=== PATIENT | male | born 1955 | race Caucasian/White ===

== ENCOUNTER 2017-01-12 11:51 | Emergency (ER) | payer BC ==
--- NOTE | 2017-01-12 13:17 | DIAGNOSTIC IMAGING REPORT ---
PROCEDURE: XR CHEST 2 VIEW INDICATION: CHEST PAIN TECHNIQUE: PA and lateral views. COMPARISON: None. FINDINGS: Allowing for overlying wires and electrodes, lungs are clear. Heart and mediastinum are normal. There are mild degenerative change of the thoracic spine. IMPRESSION: 1. Negative chest.
--- NOTE | 2017-01-12 15:18 | ED ORDER SUMMARY ---
..... Patient: BRITTNEE ORDONEZ OrderSheet [facility] VisitID: [id number] [place] [address] 61y, M Registration Date/Time: 01/12/2017 ORDER SHEET Weight: 113.3 kg (stated) Allergies: No Known Drug Allergy GENERAL ORDERS: Rug Washer (Continuous) (CP) (12:05 01/12/2017 Kamala Lynch) (12:13 KHoerner) EKG - ER Stat (12:01/12/2017 Kamala Lynch) (12:13 KHoerner) Pulse oximeter (12:01/12/2017 Kamala Lynch) (12:13 KHoerner) Chest 2V Urgent (12:01/12/2017 Kamala Lynch) (12:52 KHoerner) CBC w Diff Urgent (12:01/12/2017 Kamala Lynch) (12:52 KHoerner) CMP Urgent (12:01/12/2017 Kamala Lynch) (12:52 KHoerner) Troponin-I Urgent (12:51 01/12/2017 Kamala Lynch) (12:52 KHoerner) Troponin-I (redraw 2 hours after first draw) Urgent (13:59 01/12/2017 Kamala Lynch) (Ack 14:02 KHoerner) (14:19 KHoerner) MEDICATION ORDERS: IV FLUIDS: IV Saline Lock (12:51 01/12/2017 Kamala Lynch) (13:11 Rich R.NDonald) ORDER SHEET NOTES: [Electronically signed by Kenneth Barton Dr. (15:22 01/12/2017)] [Electronically signed by Heike Virgen R.N. (15:33 01/12/2017)] [Electronically locked/signed by Heike Virgen R.N. (15:33 01/12/2017)]
--- NOTE | 2017-01-12 15:18 | ED CLINICAL REPORT ---
Clinical Report - Physicians/Mid Levels [facility] [address] [place] [address] 01/12/2017 11:53 Patient: BRITTNEE ORDONEZ Time Seen: 1205. Arrived- By private vehicle. Historian- patient. HISTORY OF PRESENT ILLNESS Chief Complaint: CHEST PAIN. This started today, is still present but is better now and is now gone (lasted a few minutes). It was abrupt in onset and has been constant. Onset during rest. At its maximum, severity described as moderate. When seen in the E.D., it was gone. Modifying factors. Not worsened by anything. Not relieved by anything. It is described as tightness and it is described as located in the central chest area. No radiation. The patient has had difficulty breathing and nausea. No vomiting or diaphoresis. (reports no hemoptysis or recent trauma.). No additional chest pain. Similar symptoms previously: Many times. ( has not seen a doctor for this. last a few minutes then resolve.). REVIEW OF SYSTEMS No fever, chills or pedal edema. All systems otherwise negative, except as recorded above. PAST HISTORY See nurses notes. Denies the following risk factors for DVT/PE - history of DVT and pulmonary embolism, recent surgery, recent [place] and congestive heart failure. Denies the following risk factors for DVT/PE - cancer, clotting disorder, estrogens, obesity and immobility. Denies the following risk factors for DVT/PE - advanced in age and vena cava filter. SOCIAL HISTORY Never smoker. No alcohol use or drug use. No recent travel. 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 FAMILY HISTORY No history of heart disease. ADDITIONAL NOTES The nursing notes have been reviewed. PHYSICAL EXAM Vital Signs: 01/12/2017 12:05 BP: 157/83. HR: 59. RR: 18. O2 saturation: 97%. Temp: 98.3 F. Pain level now: 3/10. Hypertensive. Oxygen saturation normal. Appearance: Alert. Oriented X3. No acute distress. Eyes: Pupils equal, round and reactive to light. Eyes normal inspection. ENT: Ears normal. Nose normal. Pharynx normal. Neck: Normal inspection. Neck supple. CVS: Normal heart rate and rhythm. Heart sounds normal. Pulses normal. Respiratory: No respiratory distress. Breath sounds normal. Chest nontender. Abdomen: Soft and nontender. Bowel sounds normal. No mass. Skin: Skin warm and dry. Normal skin color. No rash. Normal skin turgor. Extremities: Extremities exhibit normal ROM. No lower extremity edema. LABS, X-RAYS, AND EKG EKG: No acute process. No acute ischemia. Narrow-complex bradycardia (55). Sinus bradycardia. Normal P waves. Normal JENNIFER. Normal QRS complex. Normal axis. Normal ST and T waves, QT and QTc. Prior EKG unavailable. The study has been interpreted contemporaneously by me. The study has been independently viewed by me. The EKG appears to be a good tracing. I agree with and confirm the computer reading of the EKG. Chest X-ray: (PROCEDURE: XR CHEST 2 VIEW INDICATION: CHEST PAIN TECHNIQUE: PA and lateral views. COMPARISON: None. FINDINGS: Allowing for overlying wires and electrodes, lungs are clear. Heart and mediastinum are normal. There are mild degenerative change of the thoracic spine. IMPRESSION: 1. Negative chest.). Views: PA and lateral. Technique: good. The X-rays were independently viewed by me and interpreted by the radiologist. The X-rays were discussed with the radiologist (via pacs). Laboratory Tests: CBC w Diff: (KISHAN: 01/12/2017 12:19) ( MsgRcvd 01/12/2017 13:07) Final results Test Result Flag Units (Reference) WHITE BLOOD COUNT 5.0 K/uL (4.5-11.5) RED BLOOD COUNT 4.49 L M/uL (4.50-5.90) HEMOGLOBIN 14.1 gm/dL (13.5-17.5) HEMATOCRIT 41.3 % (41.0-53.0) MEAN CELL VOLUME 92 fL (80-100) MEAN CORPUSCULAR HGB 31 pg (26-34) MEAN CORPUSCULAR HGB CONC 34 g/dL (31-37) RED CELL DISTRIBUTION WIDTH 13.4 % (11.6-14.8) PLATELET COUNT 226 K/uL (150-400) NEUTROPHIL % 66.0 % (50-75) LYMPH % 24.8 L % (25-40) MONO % 5.8 % (3-14) EOSINOPHIL % 2.4 % (0-4) BASOPHIL % 1.0 % (0-2) Troponin-I: (KISHAN: 01/12/2017 14:19) ( [facility] 01/12/2017 14:56) Final results Test Result Flag Units (Reference) TROPONIN I <0.05 ng/mL (0.00-1.5) TROPONIN REFERENCE RANGE:<0.1 NEGATIVE0.1-1.5 INDETERMINANT>1.5 POSITIVE CMP: (KISHAN: 01/12/2017 12:19) ( [facility] 01/12/2017 13:21) Final results Test Result Flag Units (Reference) GLUCOSE 150 H mg/dL (70-110) BUN 27 H mg/dL (7-18) CREATININE 1.0 mg/dL (0.6-1.3) Estimated GFR >60 mL/min Estimated GFR- >60 mL/min Note: Persistent reduction over 3 months in eGFR<60 mL/min/1.73 m2 defines CKD. Patients with eGFR values>=60 mL/min/1.73 m2 may also have CKD if evidence ofpersistent proteinuria. Additional information may be foundat [email or web address].org. SODIUM 140 mmol/L (136-145) POTASSIUM 4.0 mmol/L (3.5-5.1) CHLORIDE 103 mmol/L (98-107) CARBON DIOXIDE 26 mmol/L (21-32) CALCIUM 8.9 mg/dL (8.5-10.1) TOTAL PROTEIN 6.9 g/dL (6.4-8.2) ALBUMIN 3.8 g/dL (3.3-5.0) BILIRUBIN, TOTAL 0.4 mg/dL (0.0-1.0) ALKALINE PHOSPHATASE 89 U/L (46-116) AST (SGOT) 20 U/L (15-37) ALT (SGPT) 30 U/L (12-78) TROPONIN I 0.07 ng/mL (0.00-1.5) TROPONIN REFERENCE RANGE:<0.1 NEGATIVE0.1-1.5 INDETERMINANT>1.5 POSITIVE . PROGRESS AND PROCEDURES Course of Care: the patient is a pleasant 61-year-old malewith no pertinent past medical history presenting for evaluation of chest pain. Patient reports having no cardiac history. No risk factors forcardiac disease except for high cholesterol and borderline diabetes. Patient is a nonsmoker and with a history of hypertension. At this time differential diagnosis includespneumonia,acute myocardial infarction, or gastroesophageal reflux. 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 Patient reports that he has never had any difficulty with the pain while working. Patient will be evaluated for the chest pain with cardiac enzymes 2 based on the patient's time course as well as chest x-ray and EKG. EKG was only remarkable for sinus bradycardia. No abnormalities noted on chest x-ray. Troponin is noted to be negative 2. Patient continues to be symptom free Because the patient'slack of's chest pain or shortness of breath at this time, have low clinical suspicion for pulmonary embolism. Wells criteria is noted to be at low risk. Do not feel further workup for pulmonary embolism is warranted at this time. Because of the patient's age, did discuss with the patient option ofmonitoring in the hospital versus outpatient management. Patient had electedoutpatient management for his chest pain After discussing the risks and benefits. I further discussed with the patient is diagnosis, workup, home care, follow-up, and return precautions. All questions have been answered. The patient expressed understanding of these instructions and was agreeable to them. Disposition: Discharged. Condition: good. CLINICAL IMPRESSION Chest pain characterized as "discomfort"(acute). 01/12/2017 14:21 BP: 128/80. HR: 55. RR: 18. O2 saturation: 96%. Blood pressure normal. Oxygen saturation normal. INSTRUCTIONS Warnings: GENERAL WARNINGS: Return or contact your physician immediately if your condition worsens or changes unexpectedly, if not improving as expected, or if other problems arise. SPECIFICALLY, return if you develop chest, neck, jaw, shoulder, arm, or back pain, difficulty breathing, a fluttering sensation in your chest, lightheadedness, fainting, excessive fatigue, or sudden sweating. Your Current Medications: CONTINUE TAKING THE FOLLOWING MEDICATIONS: Advil Oral : 2 tabs BID. OTC Medications: Aspirin 81 mg (available over the counter): take 1 orally every 24 hours. Dispense thirty (30). No refills. Follow-up: Return to the emergency department as needed. Follow up with a specialist You may also contact Dr. French at [phone]. Screening today revealed the patient's blood pressure to be in the normal range. The patient should follow up with a primary care provider for blood pressure management. Understanding of the discharge instructions verbalized by patient. Follow-up with: Nolan Frank MD, Cardiology, , [address], [address], [place] [address] Follow up. Reason for referral: Call tomorrow to schedule an appointment. Tell them you were here in the emergency department and need a cardiac stress test. Summary of care provided to patient and family via paper. (Electronically signed by Kenneth Barton Dr. 01/12/2017 15:22)
--- NOTE | 2017-01-12 15:18 | ED ORDER SUMMARY ---
..... Patient: BRITTNEE ORDONEZ OrderSheet [facility] VisitID: [id number] [place] [address] 61y, M Registration Date/Time: 01/12/2017 ORDER SHEET Weight: 113.3 kg (stated) Allergies: No Known Drug Allergy GENERAL ORDERS: Peer Health Promoter (Continuous) (CP) (12:05 01/12/2017 Kamala Lynch) (12:13 KHoerner) EKG - ER Stat (12:01/12/2017 Kamala Lynch) (12:13 KHoerner) Pulse oximeter (12:01/12/2017 Kamala Lynch) (12:13 KHoerner) Chest 2V Urgent (12:01/12/2017 Kamala Lynch) (12:52 KHoerner) CBC w Diff Urgent (12:01/12/2017 Kamala Lynch) (12:52 KHoerner) CMP Urgent (12:01/12/2017 Kamala Lynch) (12:52 KHoerner) Troponin-I Urgent (12:51 01/12/2017 Kamala Lynch) (12:52 KHoerner) Troponin-I (redraw 2 hours after first draw) Urgent (13:59 01/12/2017 Kamala Lynch) (Ack 14:02 KHoerner) (14:19 KHoerner) MEDICATION ORDERS: IV FLUIDS: IV Saline Lock (12:51 01/12/2017 Kamala Lynch) (13:11 Rich R.NDonald) ORDER SHEET NOTES: [Electronically signed by Kenneth Barton Dr. (15:22 01/12/2017)] [Electronically signed by Heike Virgen R.N. (15:33 01/12/2017)] [Electronically locked/signed by Heike Virgen R.N. (15:33 01/12/2017)]
--- NOTE | 2017-01-12 15:18 | ED CLINICAL REPORT ---
Clinical Report - Physicians/Mid Levels [facility] [address] [place] [place] [address] 01/12/2017 11:53 Patient: BRITTNEE ORDONEZ Time Seen: 1205. Arrived- By private vehicle. Historian- patient. HISTORY OF PRESENT ILLNESS Chief Complaint: CHEST PAIN. This started today, is still present but is better now and is now gone (lasted a few minutes). It was abrupt in onset and has been constant. Onset during rest. At its maximum, severity described as moderate. When seen in the E.D., it was gone. Modifying factors. Not worsened by anything. Not relieved by anything. It is described as tightness and it is described as located in the central chest area. No radiation. The patient has had difficulty breathing and nausea. No vomiting or diaphoresis. (reports no hemoptysis or recent trauma.). No additional chest pain. Similar symptoms previously: Many times. ( has not seen a doctor for this. last a few minutes then resolve.). REVIEW OF SYSTEMS No fever, chills or pedal edema. All systems otherwise negative, except as recorded above. PAST HISTORY See nurses notes. Denies the following risk factors for DVT/PE - history of DVT and pulmonary embolism, recent surgery, recent [place] and congestive heart failure. Denies the following risk factors for DVT/PE - cancer, clotting disorder, estrogens, obesity and immobility. Denies the following risk factors for DVT/PE - advanced in age and vena cava filter. SOCIAL HISTORY Never smoker. No alcohol use or drug use. No recent travel. 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 FAMILY HISTORY No history of heart disease. ADDITIONAL NOTES The nursing notes have been reviewed. PHYSICAL EXAM Vital Signs: 01/12/2017 12:05 BP: 157/83. HR: 59. RR: 18. O2 saturation: 97%. Temp: 98.3 F. Pain level now: 3/10. Hypertensive. Oxygen saturation normal. Appearance: Alert. Oriented X3. No acute distress. Eyes: Pupils equal, round and reactive to light. Eyes normal inspection. ENT: Ears normal. Nose normal. Pharynx normal. Neck: Normal inspection. Neck supple. CVS: Normal heart rate and rhythm. Heart sounds normal. Pulses normal. Respiratory: No respiratory distress. Breath sounds normal. Chest nontender. Abdomen: Soft and nontender. Bowel sounds normal. No mass. Skin: Skin warm and dry. Normal skin color. No rash. Normal skin turgor. Extremities: Extremities exhibit normal ROM. No lower extremity edema. LABS, X-RAYS, AND EKG EKG: No acute process. No acute ischemia. Narrow-complex bradycardia (55). Sinus bradycardia. Normal P waves. Normal JENNIFER. Normal QRS complex. Normal axis. Normal ST and T waves, QT and QTc. Prior EKG unavailable. The study has been interpreted contemporaneously by me. The study has been independently viewed by me. The EKG appears to be a good tracing. I agree with and confirm the computer reading of the EKG. Chest X-ray: (PROCEDURE: XR CHEST 2 VIEW INDICATION: CHEST PAIN TECHNIQUE: PA and lateral views. COMPARISON: None. FINDINGS: Allowing for overlying wires and electrodes, lungs are clear. Heart and mediastinum are normal. There are mild degenerative change of the thoracic spine. IMPRESSION: 1. Negative chest.). Views: PA and lateral. Technique: good. The X-rays were independently viewed by me and interpreted by the radiologist. The X-rays were discussed with the radiologist (via pacs). Laboratory Tests: CBC w Diff: (KISHAN: 01/12/2017 12:19) ( MsgRcvd 01/12/2017 13:07) Final results Test Result Flag Units (Reference) WHITE BLOOD COUNT 5.0 K/uL (4.5-11.5) RED BLOOD COUNT 4.49 L M/uL (4.50-5.90) HEMOGLOBIN 14.1 gm/dL (13.5-17.5) HEMATOCRIT 41.3 % (41.0-53.0) MEAN CELL VOLUME 92 fL (80-100) MEAN CORPUSCULAR HGB 31 pg (26-34) MEAN CORPUSCULAR HGB CONC 34 g/dL (31-37) RED CELL DISTRIBUTION WIDTH 13.4 % (11.6-14.8) PLATELET COUNT 226 K/uL (150-400) NEUTROPHIL % 66.0 % (50-75) LYMPH % 24.8 L % (25-40) MONO % 5.8 % (3-14) EOSINOPHIL % 2.4 % (0-4) BASOPHIL % 1.0 % (0-2) Troponin-I: (KIHSAN: 01/12/2017 14:19) ( [facility] 01/12/2017 14:56) Final results Test Result Flag Units (Reference) TROPONIN I <0.05 ng/mL (0.00-1.5) TROPONIN REFERENCE RANGE:<0.1 NEGATIVE0.1-1.5 INDETERMINANT>1.5 POSITIVE CMP: (KISHAN: 01/12/2017 12:19) ( [facility] 01/12/2017 13:21) Final results Test Result Flag Units (Reference) GLUCOSE 150 H mg/dL (70-110) BUN 27 H mg/dL (7-18) CREATININE 1.0 mg/dL (0.6-1.3) Estimated GFR >60 mL/min Estimated GFR- >60 mL/min Note: Persistent reduction over 3 months in eGFR<60 mL/min/1.73 m2 defines CKD. Patients with eGFR values>=60 mL/min/1.73 m2 may also have CKD if evidence ofpersistent proteinuria. Additional information may be foundat [email or web address].org. SODIUM 140 mmol/L (136-145) POTASSIUM 4.0 mmol/L (3.5-5.1) CHLORIDE 103 mmol/L (98-107) CARBON DIOXIDE 26 mmol/L (21-32) CALCIUM 8.9 mg/dL (8.5-10.1) TOTAL PROTEIN 6.9 g/dL (6.4-8.2) ALBUMIN 3.8 g/dL (3.3-5.0) BILIRUBIN, TOTAL 0.4 mg/dL (0.0-1.0) ALKALINE PHOSPHATASE 89 U/L (46-116) AST (SGOT) 20 U/L (15-37) ALT (SGPT) 30 U/L (12-78) TROPONIN I 0.07 ng/mL (0.00-1.5) TROPONIN REFERENCE RANGE:<0.1 NEGATIVE0.1-1.5 INDETERMINANT>1.5 POSITIVE . PROGRESS AND PROCEDURES Course of Care: the patient is a pleasant 61-year-old malewith no pertinent past medical history presenting for evaluation of chest pain. Patient reports having no cardiac history. No risk factors forcardiac disease except for high cholesterol and borderline diabetes. Patient is a nonsmoker and with a history of hypertension. At this time differential diagnosis includespneumonia,acute myocardial infarction, or gastroesophageal reflux. 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 Patient reports that he has never had any difficulty with the pain while working. Patient will be evaluated for the chest pain with cardiac enzymes 2 based on the patient's time course as well as chest x-ray and EKG. EKG was only remarkable for sinus bradycardia. No abnormalities noted on chest x-ray. Troponin is noted to be negative 2. Patient continues to be symptom free Because the patient'slack of's chest pain or shortness of breath at this time, have low clinical suspicion for pulmonary embolism. Wells criteria is noted to be at low risk. Do not feel further workup for pulmonary embolism is warranted at this time. Because of the patient's age, did discuss with the patient option ofmonitoring in the hospital versus outpatient management. Patient had electedoutpatient management for his chest pain After discussing the risks and benefits. I further discussed with the patient is diagnosis, workup, home care, follow-up, and return precautions. All questions have been answered. The patient expressed understanding of these instructions and was agreeable to them. Disposition: Discharged. Condition: good. CLINICAL IMPRESSION Chest pain characterized as "discomfort"(acute). 01/12/2017 14:21 BP: 128/80. HR: 55. RR: 18. O2 saturation: 96%. Blood pressure normal. Oxygen saturation normal. INSTRUCTIONS Warnings: GENERAL WARNINGS: Return or contact your physician immediately if your condition worsens or changes unexpectedly, if not improving as expected, or if other problems arise. SPECIFICALLY, return if you develop chest, neck, jaw, shoulder, arm, or back pain, difficulty breathing, a fluttering sensation in your chest, lightheadedness, fainting, excessive fatigue, or sudden sweating. Your Current Medications: CONTINUE TAKING THE FOLLOWING MEDICATIONS: Advil Oral : 2 tabs BID. OTC Medications: Aspirin 81 mg (available over the counter): take 1 orally every 24 hours. Dispense thirty (30). No refills. Follow-up: Return to the emergency department as needed. Follow up with a specialist You may also contact Dr. French at [phone]. Screening today revealed the patient's blood pressure to be in the normal range. The patient should follow up with a primary care provider for blood pressure management. Understanding of the discharge instructions verbalized by patient. Follow-up with: Nolan Frank MD, Cardiology, , [address], [address], [place] [address] Follow up. Reason for referral: Call tomorrow to schedule an appointment. Tell them you were here in the emergency department and need a cardiac stress test. Summary of care provided to patient and family via paper. (Electronically signed by Kenneth Barton Dr. 01/12/2017 15:22)
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
--- NOTE | 2017-01-12 15:33 | ED MED RECONCILIATION SUMMARY ---
Patient: BRITTNEE ORDONEZ Medication Reconciliation Report Located Within [facility] VisitID: [id number] [address] [place] [address] 61y, M Registration Date/Time: 01/12/2017 Weight: 113.3 kg Height/Length: 72 in. BMI: 32.5 ALLERGIES: No Known Drug Allergy The patient's Home Medications are listed below: CONTINUE TAKING THE FOLLOWING MEDICATIONS: Advil Oral 2 tabs BID The source(s) of the original Home Medication information: Not obtained. The following Medications were given to the patient in the Emergency Department: None. The following Medications were prescribed to the patient: Aspirin 81 mg (available over the counter): take 1 orally every 24 hours. Dispense thirty (30). No refills. -- Kenneth Barton Dr.
--- NOTE | 2017-01-12 15:33 | ED DISCHARGE INSTRUCTIONS ---
Patient: BRITTNEE ORDONEZ General Instructions [facility] VisitID: [id number] [place] [address] 61y, M Registration Date/Time: 01/12/2017 Chest pain characterized as "discomfort"(acute). 01/12/2017 14:21 BP: 128/80. HR: 55. RR: 18. O2 saturation: 96%. Blood pressure normal. Oxygen saturation normal. INSTRUCTIONS Warnings: GENERAL WARNINGS: Return or contact your physician immediately if your condition worsens or changes unexpectedly, if not improving as expected, or if other problems arise. SPECIFICALLY, return if you develop chest, neck, jaw, shoulder, arm, or back pain, difficulty breathing, a fluttering sensation in your chest, lightheadedness, fainting, excessive fatigue, or sudden sweating. Your Current Medications: CONTINUE TAKING THE FOLLOWING MEDICATIONS: Advil Oral : 2 tabs BID. OTC Medications: Aspirin 81 mg (available over the counter): take 1 orally every 24 hours. Dispense thirty (30). No refills. Follow-up: Return to the emergency department as needed. Follow up with a specialist You may also contact Dr. French at [phone]. Screening today revealed the patient's blood pressure to be in the normal range. The patient should follow up with a primary care provider for blood pressure management. Understanding of the discharge instructions verbalized by patient. Follow-up with: Nolan Frank MD, Cardiology, , [address], [address], [place] [address] Follow up. Reason for referral: Call tomorrow to schedule an appointment. Tell them you were here in the emergency department and need a cardiac stress test. Summary of care provided to patient and family via paper. ADDITIONAL INFORMATION Chest Pain, Uncertain Cause Chest pain can happen for a number of reasons. Sometimes the cause can not be determined. If yourcondition does not seem serious, and your pain does not appear to be coming from your heart, your doctor may recommend watching it closely. Sometimes the signs of a serious problem take more time to appear. Therefore, watch for the warning signs listed below. Home care After your visit, follow these recommendations: Rest today and avoid strenuous activity. Take any prescribed medicine as directed. Follow-up care Follow up with your doctor or this facility as instructed or if you do not start to feel better within 24 hours. Call 911 Get immediate medical attention if any of the following occur: A change in the type of pain: if it feels different, becomes more severe, lasts longer, or begins to spread into your shoulder, arm, neck, jaw or back Shortness of breath or increased pain with breathing Weakness, dizziness, or fainting Rapid heart beat Get prompt medical attention Call your doctor right away if any of the following occur: Cough with dark colored sputum (phlegm) or blood Fever of 100.4F(38C) or higher, or as directed by your health care provider Swelling, pain or redness in one leg Aspirin Oral tablet What is this medicine? ASPIRIN ( pir in) is a pain reliever. It is used to treat mild pain and fever. This medicine is also used as directed by a doctor to prevent and to treat heart attacks, to prevent strokes, and to treat arthritis or inflammation. How should I use this medicine? Take this medicine by mouth with a glass of water. Follow the directions on the package or prescription label. You can take this medicine with or without food. If it upsets your stomach, take it with food. Do not take your medicine more often than directed. Talk to your inspection engineer regarding the use of this medicine in children. While this drug may be prescribed for children as young as 12 years of age for selected conditions, precautions do apply. Children and teenagers should not use this medicine to treat chicken pox or flu symptoms unless directed by a doctor. Patients over 65 years old may have a stronger reaction and need a smaller dose. What side effects may I notice from receiving this medicine? Side effects that you should report to your doctor or health anesthesiologist and critical care as soon as possible: allergic reactions like skin rash, itching or hives, swelling of the face, lips, or tongue breathing problems changes in hearing, ringing in the ears confusion general ill feeling or flu-like symptoms pain on swallowing redness, blistering, peeling or loosening of the skin, including inside the mouth or nose signs and symptoms of bleeding such as bloody or black, tarry stools; red or dark-brown urine; spitting up blood or brown material that looks like coffee grounds; red spots on the skin; unusual bruising or bleeding from the eye, gums, or nose trouble passing urine or change in the amount of urine unusually weak or tired yellowing of the eyes or skin Side effects that usually do not require medical attention (report to your doctor or health anesthesiologist and critical care if they continue or are bothersome): diarrhea or constipation nausea, vomiting stomach gas, heartburn What may interact with this medicine? Do not take this medicine with any of the following medications: cidofovir ketorolac probenecid This medicine may also interact with the following medications: alcohol alendronate bismuth subsalicylate flavocoxid herbal supplements like feverfew, garlic, katie, ginkgo biloba, horse chestnut medicines for diabetes or glaucoma like acetazolamide, methazolamide medicines for gout medicines that treat or prevent blood clots like enoxaparin, heparin, ticlopidine, warfarin other aspirin and aspirin-like medicines NSAIDs, medicines for pain and inflammation, like ibuprofen or naproxen pemetrexed sulfinpyrazone varicella live vaccine What if I miss a dose? If you are taking this medicine on a regular schedule and miss a dose, take it as soon as you can. If it is almost time for your next dose, take only that dose. Do not take double or extra doses. Where should I keep my medicine? Keep out of the reach of children. Store at room temperature between 15 and 30 degrees C (59 and 86 degrees F). Protect from heat and moisture. Do not use this medicine if it has a strong vinegar smell. Throw away any unused medicine after the expiration date. What should I tell my health care provider before I take this medicine? They need to know if you have any of these conditions: anemia asthma bleeding problems child with chickenpox, the flu, or other viral infection diabetes gout if you frequently drink alcohol containing drinks kidney disease liver disease low level of vitamin K lupus smoke tobacco stomach ulcers or other problems an unusual or allergic reaction to aspirin, tartrazine dye, other medicines, dyes, or preservatives or trying to get breast-feeding What should I watch for while using this medicine? If you are treating yourself for pain, tell your doctor or health anesthesiologist and critical care if the pain lasts more than 10 days, if it gets worse, or if there is a new or different kind of pain. Tell your doctor if you see redness or swelling. Also, check with your doctor if you have a fever that lasts for more than 3 days. Only take this medicine to prevent heart attacks or blood clotting if prescribed by your doctor or health anesthesiologist and critical care. Do not take aspirin or aspirin-like medicines with this medicine. Too much aspirin can be dangerous. Always read the labels carefully. This medicine can irritate your stomach or cause bleeding problems. Do not smoke cigarettes or drink alcohol while taking this medicine. Do not lie down for 30 minutes after taking this medicine to prevent irritation to your throat. If you are scheduled for any medical or dental procedure, tell your healthcare provider that you are taking this medicine. You may need to stop taking this medicine before the procedure. You have been given the following additional information: Chest Pain, Uncertain Cause Aspirin Oral tablet (Electronically signed by Kenneth Barton Dr. 01/12/2017 15:22)
--- NOTE | 2017-01-12 15:33 | ED MAR SUMMARY ---
..... Medication Administration Record [facility] [address] [place] [place], [place] [id number] Patient: BRITTNEE ORDONEZ Visit ID: [id number] 61y, M Weight: 113.3 kg Height/Length: 73.5 in BMI: 32.5 ALLERGIES: No Known Drug Allergy
--- NOTE | 2017-01-12 15:33 | ED MAR SUMMARY ---
..... Medication Administration Record [facility] [address] [place], [place] [id number] Patient: BRITTNEE ORDONEZ Visit ID: [id number] 61y, M Weight: 113.3 kg Height/Length: 73.5 in BMI: 32.5 ALLERGIES: No Known Drug Allergy
--- NOTE | 2017-01-12 15:33 | ED DISCHARGE INSTRUCTIONS ---
Patient: BRITTNEE ORDONEZ General Instructions [facility] VisitID: [id number] [place] [address] 61y, M Registration Date/Time: 01/12/2017 Chest pain characterized as "discomfort"(acute). 01/12/2017 14:21 BP: 128/80. HR: 55. RR: 18. O2 saturation: 96%. Blood pressure normal. Oxygen saturation normal. INSTRUCTIONS Warnings: GENERAL WARNINGS: Return or contact your physician immediately if your condition worsens or changes unexpectedly, if not improving as expected, or if other problems arise. SPECIFICALLY, return if you develop chest, neck, jaw, shoulder, arm, or back pain, difficulty breathing, a fluttering sensation in your chest, lightheadedness, fainting, excessive fatigue, or sudden sweating. Your Current Medications: CONTINUE TAKING THE FOLLOWING MEDICATIONS: Advil Oral : 2 tabs BID. OTC Medications: Aspirin 81 mg (available over the counter): take 1 orally every 24 hours. Dispense thirty (30). No refills. Follow-up: Return to the emergency department as needed. Follow up with a specialist You may also contact Dr. French at [phone]. Screening today revealed the patient's blood pressure to be in the normal range. The patient should follow up with a primary care provider for blood pressure management. Understanding of the discharge instructions verbalized by patient. Follow-up with: Nolan Frank MD, Cardiology, , [address], [address], [place] [address] Follow up. Reason for referral: Call tomorrow to schedule an appointment. Tell them you were here in the emergency department and need a cardiac stress test. Summary of care provided to patient and family via paper. ADDITIONAL INFORMATION Chest Pain, Uncertain Cause Chest pain can happen for a number of reasons. Sometimes the cause can not be determined. If yourcondition does not seem serious, and your pain does not appear to be coming from your heart, your doctor may recommend watching it closely. Sometimes the signs of a serious problem take more time to appear. Therefore, watch for the warning signs listed below. Home care After your visit, follow these recommendations: Rest today and avoid strenuous activity. Take any prescribed medicine as directed. Follow-up care Follow up with your doctor or this facility as instructed or if you do not start to feel better within 24 hours. Call 911 Get immediate medical attention if any of the following occur: A change in the type of pain: if it feels different, becomes more severe, lasts longer, or begins to spread into your shoulder, arm, neck, jaw or back Shortness of breath or increased pain with breathing Weakness, dizziness, or fainting Rapid heart beat Get prompt medical attention Call your doctor right away if any of the following occur: Cough with dark colored sputum (phlegm) or blood Fever of 100.4F(38C) or higher, or as directed by your health care provider Swelling, pain or redness in one leg Aspirin Oral tablet What is this medicine? ASPIRIN ( pir in) is a pain reliever. It is used to treat mild pain and fever. This medicine is also used as directed by a doctor to prevent and to treat heart attacks, to prevent strokes, and to treat arthritis or inflammation. How should I use this medicine? Take this medicine by mouth with a glass of water. Follow the directions on the package or prescription label. You can take this medicine with or without food. If it upsets your stomach, take it with food. Do not take your medicine more often than directed. Talk to your design teacher regarding the use of this medicine in children. While this drug may be prescribed for children as young as 12 years of age for selected conditions, precautions do apply. Children and teenagers should not use this medicine to treat chicken pox or flu symptoms unless directed by a doctor. Patients over 65 years old may have a stronger reaction and need a smaller dose. What side effects may I notice from receiving this medicine? Side effects that you should report to your doctor or health senior care specialist as soon as possible: allergic reactions like skin rash, itching or hives, swelling of the face, lips, or tongue breathing problems changes in hearing, ringing in the ears confusion general ill feeling or flu-like symptoms pain on swallowing redness, blistering, peeling or loosening of the skin, including inside the mouth or nose signs and symptoms of bleeding such as bloody or black, tarry stools; red or dark-brown urine; spitting up blood or brown material that looks like coffee grounds; red spots on the skin; unusual bruising or bleeding from the eye, gums, or nose trouble passing urine or change in the amount of urine unusually weak or tired yellowing of the eyes or skin Side effects that usually do not require medical attention (report to your doctor or health senior care specialist if they continue or are bothersome): diarrhea or constipation nausea, vomiting stomach gas, heartburn What may interact with this medicine? Do not take this medicine with any of the following medications: cidofovir ketorolac probenecid This medicine may also interact with the following medications: alcohol alendronate bismuth subsalicylate flavocoxid herbal supplements like feverfew, garlic, katie, ginkgo biloba, horse chestnut medicines for diabetes or glaucoma like acetazolamide, methazolamide medicines for gout medicines that treat or prevent blood clots like enoxaparin, heparin, ticlopidine, warfarin other aspirin and aspirin-like medicines NSAIDs, medicines for pain and inflammation, like ibuprofen or naproxen pemetrexed sulfinpyrazone varicella live vaccine What if I miss a dose? If you are taking this medicine on a regular schedule and miss a dose, take it as soon as you can. If it is almost time for your next dose, take only that dose. Do not take double or extra doses. Where should I keep my medicine? Keep out of the reach of children. Store at room temperature between 15 and 30 degrees C (59 and 86 degrees F). Protect from heat and moisture. Do not use this medicine if it has a strong vinegar smell. Throw away any unused medicine after the expiration date. What should I tell my health care provider before I take this medicine? They need to know if you have any of these conditions: anemia asthma bleeding problems child with chickenpox, the flu, or other viral infection diabetes gout if you frequently drink alcohol containing drinks kidney disease liver disease low level of vitamin K lupus smoke tobacco stomach ulcers or other problems an unusual or allergic reaction to aspirin, tartrazine dye, other medicines, dyes, or preservatives or trying to get breast-feeding What should I watch for while using this medicine? If you are treating yourself for pain, tell your doctor or health senior care specialist if the pain lasts more than 10 days, if it gets worse, or if there is a new or different kind of pain. Tell your doctor if you see redness or swelling. Also, check with your doctor if you have a fever that lasts for more than 3 days. Only take this medicine to prevent heart attacks or blood clotting if prescribed by your doctor or health senior care specialist. Do not take aspirin or aspirin-like medicines with this medicine. Too much aspirin can be dangerous. Always read the labels carefully. This medicine can irritate your stomach or cause bleeding problems. Do not smoke cigarettes or drink alcohol while taking this medicine. Do not lie down for 30 minutes after taking this medicine to prevent irritation to your throat. If you are scheduled for any medical or dental procedure, tell your healthcare provider that you are taking this medicine. You may need to stop taking this medicine before the procedure. You have been given the following additional information: Chest Pain, Uncertain Cause Aspirin Oral tablet (Electronically signed by Kenneth Barton Dr. 01/12/2017 15:22)
--- NOTE | 2017-01-12 15:33 | ED MED RECONCILIATION SUMMARY ---
Patient: BRITTNEE ORDONEZ Medication Reconciliation Report [facility] VisitID: [id number] [address] [place] [address] 61y, M Registration Date/Time: 01/12/2017 Weight: 113.3 kg Height/Length: 72 in. BMI: 32.5 ALLERGIES: No Known Drug Allergy The patient's Home Medications are listed below: CONTINUE TAKING THE FOLLOWING MEDICATIONS: Advil Oral 2 tabs BID The source(s) of the original Home Medication information: Not obtained. The following Medications were given to the patient in the Emergency Department: None. The following Medications were prescribed to the patient: Aspirin 81 mg (available over the counter): take 1 orally every 24 hours. Dispense thirty (30). No refills. -- Kenneth Barton Dr.
== END 2017-01-12 15:30 | disposition home or self-care (01) ==
LOC: ED SRH 11:51
DX: R07.9 Chest pain, unspecified (principal)
CPT/HCPCS: 90074; 90100; 90616; 95059